=== PATIENT | female | born 1955 | race Two or more races ===

== ENCOUNTER 2022-01-06 09:35 | Emergency (ER) | payer OTHER ==
[~2022-01-06] VITALS: Ht 157.5 cm; Wt 72.6 kg
== END 2022-01-06 14:08 | disposition home or self-care (01) ==
LOC: ER 09:35
DX: S93.401A Sprain of unspecified ligament of right ankle, initial encounter (principal); X58.XXXA Exposure to other specified factors, initial encounter; Y93.01 Activity, walking, marching and hiking; Y92.9 Unspecified place or not applicable; Y99.9 Unspecified external cause status